=== PATIENT | female | born 1970 | race Caucasian/White ===

== ENCOUNTER 2021-02-07 15:04 | Outpatient (CLI) | payer OTHER, SELFPAY ==
[2021-02-07 15:27] LABS: Basophils Absolute Auto 0.1 K/mm3 (0.0-0.1); Basophils Percent Auto 0.9 % (0.2-1.2); Eosinophils Absolute Auto 0.1 K/mm3 (0-0.3); Eosinophils Percent Auto 1.8 % (0-4.4); Hematocrit 39.7 % (37.0-47.0); Hemoglobin 12.5 g/dL (12.0-15.0); Immature Granulocyte Absolute 0.02 K/mm3 (0.00-0.031); Immature Granulocyte Percent A 0.4 % (0-0.5); Lymphocytes Absolute Auto 2.24 K/mm3 (0.9-3.2); Lymphocytes Percent Auto 40.1 % (18.3-44.2); Mean Corpuscular HGB Conc 31.5 g/dl (32-36); Mean Corpuscular Hemoglobin 27.8 pg (26-34); Mean Corpuscular Volume 88.2 fl (80-100); Mean Platelet Volume 9.2 fl (7.4-10.4); Monocytes Absolute Auto 0.4 K/mm3 (0.1-0.6); Neutrophils Absolute Auto 2.8 K/mm3 (1.3-6.7); Neutrophils Percent Auto 49.8 % (45.5-73.1); Platelet Count Result 314 k/mm3 (150-375); Red Cell Distribution Width 12.1 % (11.5-14.5); White Blood Count 5.6 K/mm3 (4.5-10.0)
[2021-02-07 15:37] LABS: Alanine Aminotransferase 18 U/L (4-35); Albumin Level 4.3 g/dL (3.5-5.1); Alkaline Phosphatase 182 U/L (38-126); Anion Gap 10 mmol/L (8-16); Aspartate Amino Transferase 25 U/L (14-36); Bilirubin,Total 0.1 mg/dL (0.2-1.3); Blood Urea Nitrogen 8 mg/dL (7-17); Calcium 9.2 mg/dL (8.4-10.2); Carbon Dioxide 22 mmol/L (22-30); Chloride 101 mmol/L (98-107); Estimated Glomerular Filt Rate > 60; Glucose 133 mg/dL (65-110); Potassium 3.6 mmol/L (3.4-5.0); Sodium 133 mmol/L (137-145)
== END 2021-02-07 15:05 | disposition home or self-care (01) ==
LOC: ANHLAB 15:06
PROVIDERS: Visit Provider Psychiatry & Neurology Neurology
DX: R56.9 Unspecified convulsions (principal)
CPT/HCPCS: 36415; 80053; 85025

== ENCOUNTER 2021-02-23 12:21 | Outpatient (CLI) | payer OTHER, SELFPAY ==
--- NOTE | 2021-02-23 10:07 | NEURO_ITS ---
This report was moved to the correct visit, [id number] on 02/24/21. Original report was signed by Jhon Miramontes MD 02/24/21 101. Neurology EEG Report General Information Date of Study: 02/23/21 TEST eeg DIAGNOSIS seizures CONDITION OF RECORDING awake and drowsy EEG NUMBER [id number] CLINICAL HISTORY patient reported she has had seizures since the age of 3 years. Used to only have 2 a year but lately having them weekly EEG DESCRIPTION basic resting occipital frequency consists of large amount of well-organized medium voltage 8 to 9 hertz per 2nd alpha admixed with very minimal amount of low-voltage 15 to 18 hertz per 2nd beta. During drowsiness low-voltage beta activity seen diffusely admixed with waxing and waning posterior alpha rhythm. Hyperventilation not done. Photic stimulation produced normal drive. Throughout the tracing during wakefulness, drowsiness, paroxysmal medium to high voltage isolated spikes, or sharp waves are seen with right hemispheric dominance. Paroxysmal ,focal, and lateralizing. IMPRESSION Abnormal record due to the presence of bihemispheric paroxysmal spikes or spike bike and slow wave transient during wakefulness and drowsiness but right hemispheric dominance and phase reversal these findings are suggestive of underlying seizure disorder This dictation may have been done utilizing a voice recognition system. Attempts have been made to correct errors. However, there may be uncorrected grammatical, spelling, and recognition errors present. Report Initialized date/time: Jhon Miramontes MD 02/24/211011 Electronically signed by: Jhon Miramontes MD 02/24/211011 [facility]
[2021-02-23 12:53] LABS: Hematocrit 38.6 % (37.0-47.0); Hemoglobin 12.8 g/dL (12.0-15.0); Mean Corpuscular HGB Conc 33.2 g/dl (32-36); Mean Corpuscular Hemoglobin 28.8 pg (26-34); Mean Corpuscular Volume 86.7 fl (80-100); Platelet Count Result 317 k/mm3 (150-375); Red Blood Count 4.45 M/mm3 (4.2-5.4); White Blood Count 5.8 K/mm3 (4.5-10.0)
[2021-02-23 13:09] LABS: Alanine Aminotransferase 19 U/L (4-35); Albumin Level 4.2 g/dL (3.5-5.1); Alkaline Phosphatase 175 U/L (38-126); Anion Gap 9 mmol/L (8-16); Aspartate Amino Transferase 27 U/L (14-36); Bilirubin,Total 0.2 mg/dL (0.2-1.3); Blood Urea Nitrogen 11 mg/dL (7-17); Calcium 9.5 mg/dL (8.4-10.2); Carbon Dioxide 22 mmol/L (22-30); Chloride 106 mmol/L (98-107); Estimated Glomerular Filt Rate > 60; Glucose 109 mg/dL (65-110); Potassium 3.9 mmol/L (3.4-5.0); Sodium 137 mmol/L (137-145)
[2021-02-26 23:35] LABS: Lamotrigine Lamictal 7.1 mcg/mL (4.0-18.0)
[2021-02-28 07:29] LABS: Carbamazepine Tegretol 11.4 mcg/mL (4.0-12.0)
== END 2021-02-23 12:22 | disposition home or self-care (01) ==
PROVIDERS: Visit Provider Psychiatry & Neurology Neurology
DX: R56.9 Unspecified convulsions (principal)
CPT/HCPCS: 36415; 80053; 80156; 80175; 85027; 95816